=== PATIENT | male | born 1990 | race Caucasian/White ===

== ENCOUNTER 2018-08-05 14:11 | Emergency (ER) | payer MEDICAID ==
[~2018-08-05] VITALS: Ht 170.2 cm; Wt 82.2 kg
[2018-08-05 14:25] VITALS: BP 143/79
--- NOTE | 2018-08-05 14:40 | NUR ---
BIB SELF C/O, THROAT SWOLLEN, WEAKNESS, COUGH, FATIGUE X1 WEEK. PT STATES TO HAVE NAUSEA; WATERY DIARRHEA X2DAYS. PT STATES TO HAVE COLD AND HOT INTOLERANCE. LEFT SIDE THROAT HAS SOME MILD SWELLING. TONSILS HAVE MILD REDNESS AND MODERATE SWELLING. DENIES RESPIRATORY DISTRESS. HX: ADHD RX: DENIES
[2018-08-05 16:02] VITALS: BP 139/75
--- NOTE | 2018-08-05 16:02 | NUR ---
Patient discharged with v/s stable. Written and verbal after care instructions given and explained. Patient alert, oriented and verbalized understanding of instructions. Ambulatory with steady gait. All questions addressed prior to discharge. ID band removed. Patient advised to follow up with PMD. Rx of Caritin-D, and Ibuprofen given. Patient educated on indication of medication including possible reaction and side effects. Opportunity to ask questions provided and answered.
== END 2018-08-05 16:02 | disposition home or self-care (01) ==
LOC: MED 14:11
DX: B34.9 Viral infection, unspecified (principal); R03.0 Elevated blood-pressure reading, without diagnosis of hypertension
CPT/HCPCS: 99282; 99283

== ENCOUNTER 2018-10-29 10:18 | Emergency (ER) | payer MEDICAID ==
[~2018-10-29] VITALS: Ht 172.7 cm; Wt 79.4 kg
[2018-10-29 10:30] VITALS: BP 133/81
--- NOTE | 2018-10-29 10:33 | NUR ---
PT AMBULATED TO BED 3 AT THIS TIME
--- NOTE | 2018-10-29 10:34 | NUR ---
PT AMBULATES TO BED 3
--- NOTE | 2018-10-29 10:49 | NUR ---
28 YO M BIB SELF PRESENTS TO THE ED WITH C/O 7/10 DULL LOWER BACK PAIN X 1 DAY. PT STATES HE HAS A HX OF OLD FOOTBALL INJURY AND THE PAIN RETURNS INTERMITTENTLY. HE REPORTS HE SLEPT ON HIS BACK WRONG LAST NIGHT. DENIES RECENT INJURY OR TRAUMA. PMH: ADHD RX: DENIES PT POSITIONED FOR COMFORT. HOB ELEVATED. SIDE RAIL UP X 1. BED IN LOWEST POSITION. VSS. NO APPARENT DISTRESS AT THIS TIME.
[2018-10-29] MEDS ORDERED: KETOROLAC 60 MG/2 ML VIAL IM ONE (11:50)
[2018-10-29] MEDS ORDERED: hydrOXYzine HCL 25 MG TAB PO ONE (11:50)
[2018-10-29 12:30] VITALS: BP 139/58
--- NOTE | 2018-10-29 12:30 | NUR ---
Patient discharged with v/s stable. Written and verbal after care instructions given and explained. Patient alert, oriented and verbalized understanding of instructions. Ambulatory with steady gait. All questions addressed prior to discharge. ID band removed. Patient advised to follow up with PMD. Rx of Volatren given. Patient educated on indication of medication including possible reaction and side effects. Opportunity to ask questions provided and answered.
== END 2018-10-29 12:30 | disposition home or self-care (01) ==
LOC: MED 10:18
DX: G89.29 Other chronic pain (principal); M54.5 Low back pain
CPT/HCPCS: 96372; 99283; J1885

== ENCOUNTER 2019-01-16 09:59 | Emergency (ER) | payer MEDICAID ==
[~2019-01-16] VITALS: Ht 170.2 cm; Wt 89.4 kg
--- NOTE | 2019-01-16 10:03 | NUR ---
Patient ambulated to bed 6. RN evaluating patient at bedside.
[2019-01-16 10:08] VITALS: BP 121/73
--- NOTE | 2019-01-16 10:10 | NUR ---
PT C/O SLIPPED ON WORK ON LAST WEDNESDAY AND HAVING HEADACHE AFTER THE FALL. DENIES VISION CHANGES OR DOUBLE VISION. DENIES NAUSEA OR VOMTING. DENIES DIARRHEA; SKIN IS PINK/WARM/DRY; AAOX4 WITH EVEN AND STEADY GAIT; PT DENIES ANY FEVER, CP, SOB, OR COUGH AT THIS TIME; PATIENT STATES HEADACHE OF 5/10 AT THIS TIME; VSS; PATIENT POSITIONED FOR COMFORT; HOB ELEVATED; BEDRAILS UP X1; BED DOWN. ER MD MADE AWARE OF PT STATUS.
--- NOTE | 2019-01-16 10:13 | NUR ---
Dr. Wolfe evaluating patient at bedside.
[2019-01-16 10:58] VITALS: BP 118/76
--- NOTE | 2019-01-16 10:58 | NUR ---
Patient discharged with v/s stable. Written and verbal after care instructions given and explained. Patient verbalized understanding. Ambulatory with steady gait. All questions addressed prior to discharge. Advised to follow up with PMD.
== END 2019-01-16 10:58 | disposition home or self-care (01) ==
LOC: MED 09:59
DX: S00.81XA Abrasion of other part of head, initial encounter (principal); W01.0XXA Fall on same level from slipping, tripping and stumbling without subsequent striking against object, initial encounter; Y93.89 Activity, other specified; Y92.69 Other specified industrial and construction area as the place of occurrence of the external cause; Y99.0 Civilian activity done for income or pay
CPT/HCPCS: 99281

== ENCOUNTER 2019-07-14 07:51 | Emergency (ER) | payer MEDICAID ==
[~2019-07-14] VITALS: Ht 172.7 cm; Wt 87.5 kg
[2019-07-14 07:52] VITALS: BP 128/69
--- NOTE | 2019-07-14 07:52 | NUR ---
TO BED # 2 AMBULATORY
--- NOTE | 2019-07-14 08:04 | NUR ---
42 Y/O M C/O CHEST CONGESTION X 5 DAYS, COUGH X 2 DAYS NON PRODUCTIVE. PT STATES HE HAS TAKEN OVER THE COUNTER FLU MEDICATION, HAS NOT HELPED. PT BED LOWERED TO LOWEST POSITION, X1 BEDRAIL IN PLACE. NKA MED HX: ADHD
--- NOTE | 2019-07-14 08:06 | NUR ---
MD AT BEDSIDE EVALUATING PATIENT
[2019-07-14 08:45] VITALS: BP 128/69
--- NOTE | 2019-07-14 08:46 | NUR ---
Patient discharged with v/s stable. Written and verbal after care instructions given and explained. Patient alert, oriented and verbalized understanding of instructions. Ambulatory with steady gait. All questions addressed prior to discharge. ID band removed. Patient advised to follow up with PMD. Rx of CODEINE/PROMETHAZINE, SUDAFED given. Patient educated on indication of medication including possible reaction and side effects. Opportunity to ask questions provided and answered.
== END 2019-07-14 08:38 | disposition home or self-care (01) ==
LOC: MED 07:51
DX: R05 Cough (principal); R09.89 Other specified symptoms and signs involving the circulatory and respiratory systems; F90.9 Attention-deficit hyperactivity disorder, unspecified type
CPT/HCPCS: 99283

== ENCOUNTER 2019-07-19 09:40 | Emergency (ER) | payer MEDICAID ==
[~2019-07-19] VITALS: Ht 172.7 cm; Wt 88.9 kg
[2019-07-19 09:45] VITALS: BP 138/103
--- NOTE | 2019-07-19 09:47 | NUR ---
Patient ambulated to bed 7. RN evaluating patient at bedside.
--- NOTE | 2019-07-19 09:53 | NUR ---
29 y/o male presenting with c/c flu-like symptoms x5 days. per pt up to date with vaccination and family is sick at home. coughing, chest discomfort when breathing cold air, runny nose. pt nka. medical hx of adhd. rx ateroll, per pt does not take anymore. denies n/v/d. side rail x1.
--- NOTE | 2019-07-19 10:26 | NUR ---
DR GALLARDO AT BEDSIDE
[2019-07-19] MEDS ORDERED: DEXAMETHASONE 10 MG/ML VIAL IM ONE (10:40)
[2019-07-19] MEDS ORDERED: ALBUTEROL SULFATE/IPRATROPIU 3 ML SOL IH ONE (10:40)
[2019-07-19] MEDS ORDERED: hydrOXYzine HCL 25 MG TAB PO ONE (10:40)
[2019-07-19] MEDS ORDERED: CLINDAMYCIN 600 MG/4 ML VIAL IM ONE (10:40)
--- NOTE | 2019-07-19 11:28 | NUR ---
Breathing treatment administered by respiratory therapist at bedside.
[2019-07-19 11:47] VITALS: BP 130/91
--- NOTE | 2019-07-19 11:48 | NUR ---
Patient discharged with v/s stable. Written and verbal after care instructions given and explained. Patient alert, oriented and verbalized understanding of instructions. Ambulatory with steady gait. All questions addressed prior to discharge. ID band removed. Patient advised to follow up with PMD. Rx of PREDNISONE, AZUTHROMYCIN, PROMETHAZINE given. Patient educated on indication of medication including possible reaction and side effects. Opportunity to ask questions provided and answered.
== END 2019-07-19 11:48 | disposition home or self-care (01) ==
LOC: MED 09:40
DX: J32.9 Chronic sinusitis, unspecified (principal); J06.9 Acute upper respiratory infection, unspecified; F90.9 Attention-deficit hyperactivity disorder, unspecified type
CPT/HCPCS: 94640; 96372; 99283; J1100; J3490; J7620

== ENCOUNTER 2019-08-25 09:55 | Emergency (ER) | payer MEDICAID ==
[~2019-08-25] VITALS: Ht 170.2 cm; Wt 88.5 kg
--- NOTE | 2019-08-25 10:04 | NUR ---
Patient ambulated to bed 4. RN evaluating patient at bedside.
[2019-08-25 10:09] VITALS: BP 144/56
--- NOTE | 2019-08-25 10:13 | NUR ---
PT C/O HAVING PRODUCTIVE COUGH W/ GREENISH PHLEGM, CHILLS, SWEATINGS, FATIGUE, AND WEAKNESS FOR 3 DAYS. DENIES FEVER, N/V. PATIENT STATES PAIN OF 0/10 AT THIS TIME; VSS; PATIENT POSITIONED FOR COMFORT; HOB ELEVATED; BEDRAILS UP X1; BED DOWN. ER MD MADE AWARE OF PT STATUS.
--- NOTE | 2019-08-25 10:42 | NUR ---
time study technician at bedside.
--- NOTE | 2019-08-25 12:09 | NUR ---
Dr. Eugene is evaluating the patient at bedside.
[2019-08-25 12:27] VITALS: BP 135/51
--- NOTE | 2019-08-25 12:27 | NUR ---
Patient discharged with v/s stable. Written and verbal after care instructions given and explained. Patient alert, oriented and verbalized understanding of instructions. Ambulatory with steady gait. All questions addressed prior to discharge. ID band removed. Patient advised to follow up with PMD. Rx of MOTRIN, PREDNISONE given. Patient educated on indication of medication including possible reaction and side effects. Opportunity to ask questions provided and answered.
== END 2019-08-25 12:27 | disposition home or self-care (01) ==
LOC: MED 09:55
DX: R05 Cough (principal); R07.9 Chest pain, unspecified; F90.9 Attention-deficit hyperactivity disorder, unspecified type; F12.90 Cannabis use, unspecified, uncomplicated
CPT/HCPCS: 71045; 99283

== ENCOUNTER 2019-09-05 10:22 | Emergency (ER) | payer MEDICAID ==
[~2019-09-05] VITALS: Ht 170.2 cm; Wt 88.5 kg
[2019-09-05 10:41] VITALS: BP 140/73
--- NOTE | 2019-09-05 12:08 | NUR ---
29 Y/O M C/O N/V/D X 3 DAYS. PT STATES LAST TIME HE VOMITTED WAS X2 DAYS AGO. PT WAS IN THE ED X 2 WEEKS AGO, STATES HE TESTED POSS FOR THE FLU. PT BOWEL SOUNDS ACTIVE ALL FOUR QUADRANTS. POSITIONED FOR COMFORT. LAUREN
[2019-09-05 12:43] VITALS: BP 140/73
--- NOTE | 2019-09-05 12:43 | NUR ---
Patient discharged with v/s stable. Written and verbal after care instructions given and explained. Patient alert, oriented and verbalized understanding of instructions. Ambulatory with steady gait. All questions addressed prior to discharge. ID band removed. Patient advised to follow up with PMD. Rx of zofran odt given. Patient educated on indication of medication including possible reaction and side effects. Opportunity to ask questions provided and answered.
== END 2019-09-05 12:43 | disposition home or self-care (01) ==
LOC: MED 10:22
DX: R11.2 Nausea with vomiting, unspecified (principal); R19.7 Diarrhea, unspecified; R50.9 Fever, unspecified; R42 Dizziness and giddiness; F90.9 Attention-deficit hyperactivity disorder, unspecified type; F12.90 Cannabis use, unspecified, uncomplicated
CPT/HCPCS: 99283

== ENCOUNTER 2021-12-02 11:49 | Emergency (ER) | payer MEDICAID ==
[~2021-12-02] VITALS: Ht 170.2 cm; Wt 94.6 kg
[2021-12-02 12:08] VITALS: BP 113/77
--- NOTE | 2021-12-02 12:12 | NUR ---
PT TO JAVID RAMOS
--- NOTE | 2021-12-02 13:41 | NUR ---
COVID TIARA SWAB DONE.
[2021-12-02] MEDS ORDERED: PROM118S5 PO (13:42)
[2021-12-02] MEDS ORDERED: ONDA-188 SL (13:42)
[2021-12-02 14:06] VITALS: BP 135/68
--- NOTE | 2021-12-02 14:09 | NUR ---
Patient discharged with v/s stable. Written and verbal after care instructions given and explained. Patient alert, oriented and verbalized understanding of instructions. Ambulatory with steady gait. All questions addressed prior to discharge. ID band removed. Patient advised to follow up with PMD. Rx of ZOFRAN AND PROMETHAZINE-DM given. Patient educated on indication of medication including possible reaction and side effects. Opportunity to ask questions provided and answered.
== END 2021-12-02 14:09 | disposition home or self-care (01) ==
LOC: MED 11:49
DX: B34.9 Viral infection, unspecified (principal); Z20.822 Contact with and (suspected) exposure to COVID-19
CPT/HCPCS: 99283

== ENCOUNTER 2022-03-23 08:15 | Emergency (ER) | payer MEDICAID ==
[~2022-03-23] VITALS: Ht 162.6 cm; Wt 89.8 kg
[~2022-03-23 08:15] MED LIST: ONDA-188 SL; PROM118S5 PO
[2022-03-23 08:21] VITALS: BP 112/59
--- NOTE | 2022-03-23 08:25 | NUR ---
PT AMBULATED TO OUTSIDE OF LOBBY
--- NOTE | 2022-03-23 09:06 | NUR ---
32 Y/O MALE BIB SELF C/O FATIGUE, LOSS OF TASTE AND SMELL. PER PT HE WAS EXPOSED TO HIS 2 DAYS AGO AND WANTS A COVID TEST. DENIES ANY PAIN OR OTHER RESPIRATORY S/S NKA PMH: DENIES
--- NOTE | 2022-03-23 11:30 | NUR ---
SEEN BY VIR[place] MATHUR OUTSIDE LOBBY
--- NOTE | 2022-03-23 11:35 | NUR ---
Patient discharged with v/s stable. Written and verbal after care instructions ABOUT COVID given and explained. Patient verbalized understanding. Ambulatory with steady gait. All questions addressed prior to discharge. Advised to follow up with PMD.
== END 2022-03-23 11:35 | disposition home or self-care (01) ==
LOC: MED 08:15
DX: R53.83 Other fatigue (principal); Z20.822 Contact with and (suspected) exposure to COVID-19
CPT/HCPCS: 99283

== ENCOUNTER 2022-09-28 10:29 | Emergency (ER) | payer MEDICAID ==
[~2022-09-28] VITALS: Ht 170.2 cm; Wt 86.2 kg
[2022-09-28 10:36] VITALS: BP 149/67
--- NOTE | 2022-09-28 10:52 | NUR ---
32YO MALE PT C/O SORE THROAT, THORBBING HEADACHE AND BODY ACHES XLASTNIGHT. DRY COUGH PRESENT. MARBIN LUNG SOUNDS. DENIES TAKING MEDICATION , CHEST PAIN, SOB , FEVER OR CHILLS. +SONS SICK AT HOME. PT AAOX4, RESPIRATIONS EVEN AND UNLABORED. HOB POSITIONED PER COMFORT. HX: ADHD ALLERGIES: X1 -UNABLE TO RECALL
[2022-09-28] MEDS ORDERED: PROM118S5 PO (11:32)
[2022-09-28] MEDS ORDERED: IBUP-2213 PO (11:32)
[2022-09-28] MEDS ORDERED: ACET-10509 PO (11:32)
--- NOTE | 2022-09-28 11:41 | NUR ---
Patient discharged with v/s stable. Written and verbal after care instructions FOR UPPER RESPIRATORY INFECTION given and explained. Patient alert, oriented and verbalized understanding of instructions. Ambulatory with steady gait. All questions addressed prior to discharge. ID band removed. Patient advised to follow up with PMD. Rx of TYLENOL XTRA STRENGTH, IBUPROFEN AND PROMETHAZINE given. Opportunity to ask questions provided and answered.
--- NOTE | 2022-09-28 11:42 | NUR ---
The patient's care was reviewed and supervised by Pinky Howard RN.
== END 2022-09-28 11:41 | disposition home or self-care (01) ==
LOC: MED 10:29
DX: J06.9 Acute upper respiratory infection, unspecified (principal); F90.9 Attention-deficit hyperactivity disorder, unspecified type; Z79.899 Other long term (current) drug therapy; Z79.1 Long term (current) use of non-steroidal anti-inflammatories (NSAID)
CPT/HCPCS: 99283

== ENCOUNTER 2023-06-25 11:12 | Emergency (ER) | payer MEDICAID ==
[~2023-06-25] VITALS: Ht 170.2 cm; Wt 90.7 kg
[~2023-06-25 11:12] MED LIST changes: +ACET-10509 PO; +IBUP-2213 PO
[2023-06-25 11:15] VITALS: BP 132/50; PULSE 98; RESP 16; TEMP 98.6; O2SAT 95
[2023-06-25] MEDS ORDERED: BENZ150C2 PO (12:20)
[2023-06-25 12:33] VITALS: BP 125/62; PULSE 88; RESP 16; TEMP 98; O2SAT 97
[2023-06-25 12:52] LABS: FLU A ANTIGEN negative (NEGATIVE); FLU B ANTIGEN NEGATIVE (NEGATIVE)
== END 2023-06-25 12:33 | disposition home or self-care (01) ==
LOC: MED 11:12
DX: J06.9 Acute upper respiratory infection, unspecified (principal); Z20.822 Contact with and (suspected) exposure to COVID-19; R03.0 Elevated blood-pressure reading, without diagnosis of hypertension; Z79.899 Other long term (current) drug therapy
CPT/HCPCS: 99283